=== PATIENT | male | born 1970 | race Caucasian/White ===

== ENCOUNTER 2020-02-05 08:27 | Outpatient (CLI) | payer OTHER, SELFPAY ==
--- NOTE | 2020-02-05 08:30 | ECG_ITS ---
Measurements Intervals [place] Rate: 103 P: 3 SC: 163 QRS: -22 QRSD: 102 T: 36 QT: 333 QTc: 436 Interpretive Statements SINUS TACHYCARDIA CANNOT RULE OUT SEPTAL INFARCT, AGE INDETERMINATE BORDERLINE T WAVE ABNORMALITY- HIGH LATERAL LEADS BASELINE ARTIFACT- I, III, AVR, AVL, AVF ABNORMAL ECG Electronically Signed On 02-05-2020 8:41:30 CDT by Riley Thurston D.O.
== END 2020-02-05 08:28 | disposition home or self-care (01) ==
LOC: ANHSURGERY 08:30
PROVIDERS: Visit Provider Surgery
DX: Z01.810 Encounter for preprocedural cardiovascular examination (principal); I10 Essential (primary) hypertension
CPT/HCPCS: 93005

== ENCOUNTER 2020-02-12 00:51 | Outpatient (CLI) | payer OTHER, SELFPAY ==
[2020-02-12 17:41] LABS: SARS-CoV-2 RNA PCR Negative
== END 2020-02-12 00:52 | disposition home or self-care (01) ==
LOC: ANHCOVIDDT 00:51
PROVIDERS: Visit Provider Surgery
DX: Z01.812 Encounter for preprocedural laboratory examination (principal); Z20.828 Contact with and (suspected) exposure to other viral communicable diseases
CPT/HCPCS: 87635; C9803; U0003

== ENCOUNTER 2020-02-14 01:56 | Day surgery (SDC) | payer OTHER, SELFPAY ==
[2020-01-31 15:02] VITALS: BMI 24.3
[2020-02-14] VITALS (8 sets, daily range): BP systolic 111–143; BP diastolic 75–99; PULSE 80–100; RESP 16–18; TEMP 36.4–36.8; O2SAT 92–100
--- NOTE | 2020-02-14 06:51 | P.PNAN_ITS ---
Anes - Initial Pre Proc Eval Procedure: Operation Date: 02/14/20 07:30 Proposed Procedures p Incision And Drainage Complicated Pilonidal Cyst - Ruddy Rivera MD Date/Time: 02/14/20 06:51 Surgeon: Ruddy Rivera MD Pre Op Diagnosis: Complicated Pilonidal Cyst Patient Data Age: 49 Gender: M Height: 5 ft 7 in Weight: 70.31 kg Allergies Allergy/AdvReac Type Severity Reaction Status Date / Time No Known Allergies Allergy Verified 01/31/20 15:03 Home Medications Medication Instructions Recorded Confirmed Type fenofibrate 150 mg capsule 150 mg PO DAILY 01/23/20 01/31/20 History lisinopril 20 mg tablet 20 mg PO DAILY 01/23/20 01/31/20 History Patient hx anesthesia problems: none Family hx anesthesia problems: none [facility] Past Medical History Medical History History of high cholesterol History of hypertension Surgical History Surgical History History of arthroplasty of both wrists Left wrist only Family History Family History Mother Hypertension Social History Social History Smoking packs per day: 1 Smoking cigarettes per day: 20.0 Years smoked: 32 Smoking pack-years: 32.00 Smoking status: Current every day smoker Tobacco type: cigarettes Alcohol intake: current Drinks per week: 20 Additional occupation/education comments: [employer] Spiritual care concerns: No Anes - Eval Final PreProcedure Day of Procedure 02/14/20 06:51 Patient weight: morbidly obese Heart: regular rate and rhythm Lungs: clear to auscultation Airway: Mallampati scale class II Neurological: alert and oriented Last oral intake: >/= 8 hours ASA classification: III Emergent: no Anesthetic plan: proceed Anesthesia type and monitoring: general ETT and standard monitoring Informed Consent: The patient's anesthetic plan and its attendant risks and benefits were discussed with the patient/family/POA. Questions were solicited and answers provided to the satisfaction of the patient/family/POA.
--- NOTE | 2020-02-14 06:55 | WPDHPUPDATE1 ---
History and Physical Update Update Date/Time: 02/14/20 06:55 History and Physical has been reviewed, including an updated exam of the patient. There are NO changes in the patient's condition. Risks, benefits, and alternatives have been discussed and questions answered. Patient agrees to proceed with procedure.
[2020-02-14] MEDS: LACTATED RINGERS 1,000 ML 30 ML IV CONT ×2 (07:05→08:15)
[2020-02-14] MEDS: ceFAZolin 2 GM/D5W 50 ML 2 GM/50 ML BAG IVPB (07:22)
--- NOTE | 2020-02-14 08:42 | PM.PROC ---
Procedure Note - Detailed Date of procedure: 02/14/20 Pre-op diagnosis: Complicated Pilonidal Cyst Complicated pilonidal cyst Post-op diagnosis: same Procedure performed: incision and drainage complicated pilonidal cyst Description of procedure: the patient was taken to surgery and induced into general anesthesia. He was then turned into a prone position. The area of the pilonidal cyst and the upper gluteal crease was meticulously shaved. Prep and drape was carried out. Using a fine tip clamp, I removed air fibers from a cleft and several small pits. Each contained long fibers of hair. I then gently probed the chronically infected opening in the right upper buttock near the crease. Small amount of purulent fluid was found but it clearly was tracking towards the midline. I unroofed the area which was really only inflammatory tissue. I then debrided excisionally some skin and subcutaneous around the pilonidal cyst tract. Fortunately the tract ended short of the midline. I removed all hair and inflammatory tissue in the tract. It did not track towards the cleft and there was no evidence of a midline tract. I made the wound meticulously hemostatic with the cautery. It was packed with Xeroform gauze. 4 x 4 gauze bandage was placed over the wound and the midline pits. The patient was returned to a supine position, extubated and taken to recovery in good condition. Anesthesia: MICHELLE Surgeon: Ruddy Rivera MD [employer]ishing Tool Technician: Vaibhav MONIQUE Estimated blood loss (mL): 10 Drains: No Packing: Yes ( Xeroform gauze) Pathology: none sent Complications: None Condition: stable Disposition: PACU Findings: complicated pilonidal cyst, large cleft and several pits with hair. Open wound left for delayed wound healing and wound care.
== END 2020-02-14 10:04 | disposition home or self-care (01) ==
PROVIDERS: Visit Provider Surgery
PROC: (CPT 10081; principal; 2020-02-14 07:30)
DX: L05.91 Pilonidal cyst without abscess (principal); I10 Essential (primary) hypertension; E78.00 Pure hypercholesterolemia, unspecified; F17.210 Nicotine dependence, cigarettes, uncomplicated; E66.01 Morbid (severe) obesity due to excess calories; Z68.37 Body mass index [BMI] 37.0-37.9, adult
CPT/HCPCS: 10081; A9270; J0690; J1100; J1170; J1885; J2250; J2405; J2704; J3010; J7120; Q9968

== ENCOUNTER 2022-11-16 08:05 | Emergency (ER) | payer OTHER, SELFPAY ==
--- NOTE | 2022-11-16 08:06 | ED.GENADULT ---
HPI - General Adult General Chief complaint: Upper Respiratory Infection Stated complaint: Cough Time Seen by Provider: 11/16/22 08:15 Source: patient, RN notes reviewed and old records reviewed Mode of arrival: ambulatory Limitations: no limitations History of Present Illness HPI narrative: 52-year-old male presents to the [facility] with complaints of a cough for at least 4 days. Current smoker. Has a history of bronchitis. Has tried [id number] products with no relief Related Data Home Medications Medication Instructions Recorded Confirmed fenofibrate 150 mg capsule 150 mg PO DAILY 01/23/20 03/25/20 lisinopril 20 mg tablet 20 mg PO DAILY 01/23/20 03/25/20 Allergies Allergy/AdvReac Type Severity Reaction Status Date / Time No Known Allergies Allergy Verified 03/18/22 15:18 Review of Systems Review of Systems: All systems reviewed & are unremarkable except as noted in HPI and below Constitutional: Constitutional: Reports no additional constitutional complaints Eyes: Eyes: Reports no additional eye complaints ENT: Reports system reviewed and no additional complaints, except as documented Cardiovascular: Cardiovascular: Reports no additional cardiovascular complaints, Denies chest pain and Denies dyspnea Respiratory: Respiratory: Reports as per HPI, Reports chest congestion, Reports cough, Reports pain with cough, Reports dyspnea and Reports wheezing Gastrointestinal: Gastrointestinal: Reports no additional gastrointestinal complaints, Denies abdominal pain, Denies nausea and Denies vomiting Musculoskeletal: Musculoskeletal: Reports no additional musculoskeletal complaints Integumentary/Breasts: Skin/Breast: Reports system reviewed and no additional complaints, except as docu Neurologic: Reports system reviewed and no additional complaints, except as documented Psychiatric: Psychiatric: Reports no additional psychiatric complaints Allergic/Immunologic: Allergic/Immunologic: Reports no additional allergic/immunologic complaints [facility] Past Medical History Medical History History of high cholesterol History of hypertension Surgical History Surgical History History of arthroplasty of both wrists Left wrist only History of incision and drainage 02/14/2020 pilonidal cyst Family History Family History Mother Hypertension Mother Hypertension Sibling Patient's sister is in good health Patient's brother is in good health, Onset Age: 36 Social History Social History Smoking packs per day: 1 Smoking cigarettes per day: 20.0 Years smoked: 32 Smoking pack-years: 32.00 Tobacco type: cigarettes Alcohol intake: current Drinks per week: 20 Alcohol use details: 3-4 cocktails daily Occupation/Education: occupation Additional occupation/education comments: [employer] Spiritual care concerns: No Comments At the time of my signature, I reviewed and agree with the nursing past medical, surgical, social, and family history. There is no relevant family history pertinent to the patient complaint. Exam Const: General: cooperative, healthy appearing, comfortable, no acute distress, well developed, alert and well nourished Nutritional Appearance: well nourished Orientation/consciousness: patient oriented x3 Limitations: no limitations HENMT: Head: normal to inspection Ears: hearing grossly normal bilaterally and external ears normal Face/Nose/Sinus: Normal external nose present, Normal nares present, Normal nasal mucous membranes and turbinates present and normal facial exam Face and sinus: normal facial exam Mouth: Yes Normal oral and palatal mucosa present, Yes lip normal and Yes moist mucous membranes Throat: posterior oropharynx normal and uvula midline Eyes: G
[2022-11-16 08:12] VITALS: BP 135/99; PULSE 108; RESP 16; TEMP 36; O2SAT 95
== END 2022-11-16 08:34 | disposition home or self-care (01) ==
PROVIDERS: Emergency Provider Nurse Practitioner
DX: J40 Bronchitis, not specified as acute or chronic (principal); F17.210 Nicotine dependence, cigarettes, uncomplicated; E78.00 Pure hypercholesterolemia, unspecified; I10 Essential (primary) hypertension
CPT/HCPCS: 99213; G0463

== ENCOUNTER 2024-10-18 09:04 | Emergency (ER) | payer OTHER, SELFPAY ==
[2024-10-18 09:27] VITALS: BP 127/83; PULSE 99; RESP 16; TEMP 37; O2SAT 97
--- NOTE | 2024-10-18 09:41 | ED_ITS ---
HPI - Skin/Abscess/Foreign Bdy General Chief complaint: Skin/Abscess/Foreign Body Stated complaint: cyst on left side of face Time Seen by Provider: 10/18/24 09:35 Source: patient and RN notes reviewed Mode of arrival: ambulatory Limitations: no limitations History of Present Illness HPI narrative: 54-year-old male presents [facility] complaining of left facial swelling and possible abscess. Patient said over the last 4 days he has noticed cyst on the left side of his face near the corner of his jaw. Patient states that it got increasingly swollen, tender and red. Patient has been trying warm compresses at home no relief. Patient denies any significant past medical history. Patient denies any fevers, body aches, chills, difficulty opening his jaw, or any other symptoms. Related Data Home Medications ?Medication ?Instructions ?Recorded ?Confirmed ?Last Taken ?Type fenofibrate 150 mg capsule 150 mg PO DAILY 01/23/20 03/25/20 Unknown History lisinopril 20 mg tablet 20 mg PO DAILY 01/23/20 03/25/20 Unknown History hydrochlorothiazide 25 mg tablet mg 10/18/24 Unknown History Allergies Allergy/AdvReac Type Severity Reaction Status Date / Time No Known Allergies Allergy Verified 10/18/24 09:25 Review of Systems Review of Systems: CONSTITUTIONAL: Denies fever, chills, body aches, or sweats. EYES: Denies visual changes, redness, or discharge. ENT: Denies rhinorrhea, congestion, sore throat, trismus, difficulty swallowing, or otalgia. CARDIOVASCULAR: Denies chest pain, palpitations, or edema. RESPIRATORY: Denies cough or dyspnea. GASTROINTESTINAL: Denies abdominal pain, nausea, vomiting, or diarrhea. GENITOURINARY: Denies dysuria or hematuria. SKIN: Denies rash or itching. Positive for her wound, redness, swelling. MUSCULOSKELETAL: Denies back pain, joint pain, or myalgia. NEUROLOGIC: Denies headache, numbness, or weakness. PSYCHIATRIC: Denies anxiety or depression. All other systems reviewed are negative, except as documented in HPI. [facility] Past Medical History Medical History History of hypertension History of high cholesterol Surgical History Surgical History History of incision and drainage 02/14/2020 pilonidal cyst History of arthroplasty of both wrists Left wrist only Family History Family History Mother Hypertension Mother Hypertension Sibling Patient's sister is in good health Patient's brother is in good health, Onset Age: 36 Social History Social History Smoking packs per day: 1 Smoking cigarettes per day: 20.0 Years smoked: 32 Smoking pack-years: 32.00 Tobacco type: cigarettes Alcohol intake: current Drinks per week: 20 Alcohol use details: 3-4 cocktails daily Occupation/Education: occupation Additional occupation/education comments: [employer] Spiritual care concerns: No Comments At the time of my signature, I reviewed and agree with the nursing past medical, surgical, social, and family history. There is no relevant family history pertinent to the patient complaint. Exam Narrative: GENERAL: This is a well-nourished, well-developed adult, in no apparent distress. They are non ill-appearing, nontoxic appearing. HEAD: normocephalic, atraumatic. EYES: Sclera clear/white. Conjunctiva normal. Vision is grossly intact. Extraocular movements intact EARS: External ears normal, Hearing grossly intact. NOSE: External nose normal THROAT/OROPHARYNX: Mucous membranes moist, posterior pharynx clear, without erythema or swelling. Uvula midline. No trismus. Teeth intact. No area of fluctuance or induration. No swelling. NECK: Neck supple, non-tender without lymphadenopathy, masses or thyromegaly. CARDIOVASCULAR: Regular rate and rhythm RESPIRATORY: Respiratory rate normal, respiratory effort nonlabored, no respiratory distress SKIN: Face: There is area erythema and swelling the left face near the corner of the jaw. Is tender to palpate in skin is raised. Skin indurated with area of fluctuance. No surrounding cellulitis. No exudate. Erythematous area measuring approximately 2.5 cm x 2 cm. There is a small pustule present to the left maxillary region laterally inferior to the eye, no induration or redness. NEURO: awake, alert, and oriented to person, place and time. There were no obvious focal neurologic abnormalities. EXTREMITIES: No joint tenderness, effusion, or edema noted. Course Course Emergency Course: Portions of this record may have been created with voice recognition software Level of Care: Express Care Visit Vital Signs Vital signs: Vital Signs Temperature 98.6 F 10/18/24 09:27 Pulse Rate 99 10/18/24 09:27 Respiratory Rate 16 10/18/24 09:27 Blood Pressure 127/83 10/18/24 09:27 Pulse Oximetry 97 10/18/24 09:27 Temperature 98.6 F 10/18/24 09:27 Pulse Rate 99 10/18/24 09:27 Respiratory Rate 16 10/18/24 09:27 Blood Pressure 127/83 10/18/24 09:27 Pulse Oximetry 97 10/18/24 09:27 Reviewed Procedures Abscess I/D face: Date of Incision: 10/18/24 Time of Incision: 09: Side (if applicable): left (Near mandible and corner of jaw.) Local Anesthetic: lidocaine 1% (With epi) Amount of anesthesia used (mL): 2 Technique: incised with #11 blade Amount of fluid expressed (mL): 7.5 (Approximate) Irrigation: Yes Packing used?: none I&D Results: Pus, Blood and Other (Cystic) Abcess I&D Additional Comments: Patient tolerated procedure well. Facial hair was shaved near the affected area. Non adherent dressing applied over abscess. MDM - Skin/Abscess/Foreign Bdy MDM Narrative Medical decision making narrative: Patient has abscess to left side of his face. No surrounding cellulitis. Successful incision and drainage of abscess. Cystic matter is present inside abscess. Will treat empirically with doxycycline. Discussed physical exam findings. Advised supportive measures and signs/symptoms to go to the ER. Pt is appropriate for outpt treatment and f/u. Differential Diagnosis Differential diagnosis: Likely abscess of skin or subcutaneous tissue, cellulitis and other (Acne rosacea, acne vulgaris) Critical Care Time Critical Care Time Critical Care Time: No Discharge Plan Discharge Clinical Impression: Abscess Patient Disposition: Home Condition: Stable Instructions: Antibiotic Form, Abscess (ED) Additional Instructions: Clean with soap and water only; Avoid using alcohol and peroxide. Please keep the wound dry and covered until the wound has healed completely. Apply moist heat to promote drainage 3-4 times daily for 10-15 minutes. A wound culture was sent off, and if the organism grows is ineffective to current treatment will be contacted and appropriate antibiotic will be prescribed. Take antibiotic until it's gone. Please wear sunscreen while taking doxycycline and if her going to be outside. Follow-up with PCP in 3-5 days to make sure it is healing well. If you developing worsening redness, swelling, drainage, fevers, pain, or any other concerns please go to the ER immediately. Patient Language: [place]er Prescriptions: New doxycycline monohydrate 100 mg capsule 100 mg PO BID 7 Days Qty: 14 0RF No Action (DME) Aerochamber MV Spacer See Rx Instructions .Route Qty: 1 0RF Rx Instructions: As directed albuterol sulfate 90 mcg/actuation HFA aerosol inhaler 2 puff inhalation QID PRN (Reason: shortness of breath or wheezing) Qty: 6.7 0RF hydrochlorothiazide 25 mg tablet fenofibrate 150 mg capsule 150 mg PO DAILY lisinopril 20 mg tablet 20 mg PO DAILY Follow-up/Referrals: PHYSICIAN,PROFESSOR OF ENGINEERING [Primary Care Provider] - Time of Disposition: 10:13
[2024-10-18] MEDS: LIDO 1%/EPINEPHRINE 1:100,000 20 ML VIAL INFILTRATE (09:47)
== END 2024-10-18 10:15 | disposition home or self-care (01) ==
DX: L02.01 Cutaneous abscess of face (principal); I10 Essential (primary) hypertension; F17.210 Nicotine dependence, cigarettes, uncomplicated
CPT/HCPCS: 10060; 87070; 87075; 87205; 99213; G0463; J2004